=== PATIENT | male | born 1980 | race Caucasian/White ===

== ENCOUNTER 2024-04-16 12:14 | Emergency (ER) | payer OTHER ==
[~2024-04-16] VITALS: Ht 188 cm; Wt 122.7 kg
[2024-04-16 12:18] VITALS: BP 167/101; PULSE 86; TEMP 97.2; O2SAT 98
[2024-04-16 13:13] VITALS: RESP 16
== END 2024-04-16 17:09 | disposition home or self-care (01) ==
LOC: ER 12:15
DX: F41.9 Anxiety disorder, unspecified (principal)
CPT/HCPCS: 99281